=== PATIENT | male | born 1930 | race Caucasian/White ===

== ENCOUNTER 2017-02-09 15:37 | Inpatient (IN) ==
[2017-02-09] MEDS ORDERED: ASPIRIN PO STA (16:21)
[2017-02-09] MEDS ORDERED: CARDIZEM IV ONE (16:21)
[2017-02-09] MEDS ORDERED: NITROGLYCERIN SL PRN (16:21)
--- NOTE | 2017-02-09 16:25 | PROVIDER DOCUMENTATION ---
HPI-General Adult - General Chief Complaint: Palpitations Stated Complaint: a fib with rvr from PCP office Time Seen by Provider: 02/09/17 16:01 Source: patient, EMS Allergies/Adverse Reactions: Patient Allergies Allergy/AdvReac Type Severity Reaction Status Date / Time No Known Allergies Allergy Verified 02/09/17 16:43 - History of Present Illness -Gen Adult Nature of Presenting Problems: Pt is a 87 yom that presents to er with cc of afib with rvr. Pt family at bedside reports pt has had sob,malaise,fever of 101 congestion and vomiting and diarrhea x 1 day. Went to pcp sent to ER due to afib with rvr. Pt has hx of afib. No home o2. Hx of copd,dm,afib. Reports possible pneumonia in left lung. Location of Pain/Injury: reports: generalized Quality of Pain: reports: none Severity: reports: moderate Onset/Duration: reports: 24 hours ago Timing: reports: still present Similar Symptoms Previously?: No Recently seen or treated by another doctor?: Yes Review of Systems - Adult - REVIEW OF SYSTEMS - ADULT Constitutional: reports: fever, fatique. denies: chills, night sweats, weight gain, weight loss Eyes: reports: no symptoms reported Ears, Nose, Mouth & Throat: denies: ear pain, sinus problem, throat pain Cardiovascular: reports: irregular heart rate. denies: chest pain, orthopnea, poor circulation, syncope Respiratory: reports: shortness of breath. denies: cough, pleurisy, wheezing Gastrointestinal: reports: diarrhea, nausea, poor appetite, vomiting. denies: abdominal pain, hematemesis, constipation Genitourinary: reports: no symptoms reported Musculoskeletal: reports: no symptoms reported Integumentary: reports: no symptoms reported Neurological: reports: no symptoms reported Psychiatric: reports: no symptoms reported Endocrine: reports: no symptoms reported Hematologic/Lymphatic: reports: no symptoms reported Allergic/Immunologic: reports: no symptoms reported All Other Systems: Reviewed and Negative Past History - Adult - PAST MEDICAL HISTORY-ADULT Review of Records: reports: Nursing Assessment Review, Medications Reviewed Major Childhood Illnesses: reports: denies history Cardiovascular: reports: A-Fib Respiratory: reports: COPD Endocrine/Immune: reports: Diabetes Diabetes Type: Type 2 - PRIOR SURGERIES/PROCEDURES Surgical/Procedure History: reports: other (AAA) - IMMUNIZATION STATUS Childhood Immunizations: See Nurse Assessment Flu Vaccine: See Nurse Assessment - SOCIAL HISTORY Smoking: denies Physical Exam-General - PHYSICAL EXAM-ADULT Initial Vital Signs Reviewed: Yes - CONSTITUTIONAL General Appearance: alert, mild distress. 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 negative: normal color - PSYCHIATRIC Psych/Mental Status: normal mood/affect, normal thought content, normal thought process, oriented x 3 Progress - PLAN OF CARE/RESULTS Progress/Plan/Lab Results: Orders Category Date Time Status Cardiac Monitoring DIRECTED Care 02/09/17 16:21 Active Saline Loc NOW Care 02/09/17 16:21 Active cxr [CHEST-PORTABLE] [RAD] Stat Exams 02/09/17 16:21 Ordered CBC WITH ELECTRONIC DIFF [HEME] Stat Lab 02/09/17 16:21 Uncollected CK PROFILE [SP CHEM] Stat Lab 02/09/17 16:21 Uncollected COMPREHENSIVE METABOLIC PANEL [CHEM] Stat Lab 02/09/17 16:21 Uncollected MAGNESIUM [CHEM] Stat Lab 02/09/17 16:21 Uncollected PRO B-NATRIURETIC PEPTIDE Stat Lab 02/09/17 16:21 Uncollected PROTIME WITH INR [COAG] Stat Lab 02/09/17 16:21 Uncollected PTT [COAG] Stat Lab 02/09/17 16:21 Uncollected TROPONIN T Stat Lab 02/09/17 16:21 Uncollected Aspirin Med 02/09/17 16:21 Discontinued 325 mg PO STAT STA Diltiazem [Cardizem] Med 02/09/17 16:21 Discontinued 10 mg IV NOW ONE Nitroglycerin Sl [Nitroglycerin] Med 02/09/17 16:21 Active 0.4 mg SL Q5M PRN PRN EKG [EKG] Stat Ther 02/09/17 16:21 Ordered Vital Signs - 24 hr 02/09/17 02/09/17 16:05 16:42 Temperature 98.1 F Pulse Rate 170 H 80 Respiratory 26 H 22 Rate Blood Pressure 108/52 O2 Sat by Pulse 100 100 Oximetry Laboratory Tests 02/09/17 02/09/17 02/09/17 16:08 16:08 16:08 WBC 6.80 RBC 3.41 L Hgb 10.7 L Hct 33.7 L MCV 98.8 MCH 31.4 H MCHC 31.8 L RDW Std Deviation 14.7 H Plt Count 163 MPV 10.2 Immature Gran % (Auto) 0.4 Neut % (Auto) 83.4 H Lymph % (Auto) 11.8 L Dickenson % (Auto) 4.4 Eos % (Auto) 0.0 Baso % (Auto) 0.0 Immature Gran # (Auto) 0.03 Neut # (Auto) 5.67 Lymph # (Auto) 0.80 L Dickenson # (Auto) 0.30 Eos # (Auto) 0.00 Baso # (Auto) 0.00 PT 11.0 INR 1.04 PTT (Actin FS) 36.7 H Sodium 135 L Potassium 6.2 H* Chloride 104 Carbon Dioxide 13 L Anion Gap 18 BUN 57 H Creatinine 3.3 H Estimated GFR/1.73 m2 18 BUN/Creatinine Ratio 17 Glucose 155 H Calculated Osmolality 289 Calcium 8.3 L Magnesium 1.5 Total Bilirubin 0.40 AST 33 ALT 15 Alkaline Phosphatase 64 Creatine Kinase 192 Troponin T [id number] Pept Total Protein 6.9 Albumin 3.5 Globulin 3.4 Albumin/Globulin Ratio 1.0 02/09/17 02/09/17 16:08 16:08 WBC RBC Hgb Hct MCV MCH MCHC RDW Std Deviation Plt Count MPV Immature Gran % (Auto) Neut % (Auto) Lymph % (Auto) Dickenson % (Auto) Eos % (Auto) Baso % (Auto) Immature Gran # (Auto) Neut # (Auto) Lymph # (Auto) Dickenson # (Auto) Eos # (Auto) Baso # (Auto) PT INR PTT (Actin FS) Sodium Potassium Chloride Carbon Dioxide Anion Gap BUN Creatinine Estimated GFR/1.73 m2 BUN/Creatinine Ratio Glucose Calculated Osmolality Calcium Magnesium Total Bilirubin AST ALT Alkaline Phosphatase Creatine Kinase Troponin T 0.117 H [id number]-[id number] Pept 7067 H Total Protein Albumin Globulin Albumin/Globulin Ratio 1735 Hospitalist paiged - EKG 1 Time of EKG reading by physician:: 15:51 EKG Read and Signed by:: Jase Clarke EKG Interpretation (*Must complete 3 of following elements*): Abnormal (low voltage QRS) Rate: 182 Rhythm: afib with rvr Benoit: normal ST Wave: non-specific ST changes - CONSULTS/PCP/HOSPITALIST Notification #1 *Consult/PCP/Hospitalist*: Time Discussed: 17:40 Consult Disposition: Admit Departure - Departure Time of Disposition Order: 17:40 DIAGNOSIS: Atrial fibrillation with RVR, SOB (shortness of breath) Disposition: ADMITTED INPATIENT 09 Certified Medical Emergency: Emergent Condition: Stable Attestation - Scribe Verification/Attestation Scribe:: Marcelino Benitez Acting as Scribe for:: Ismael Zhong Scribe documention review:: This chart was documented by a scribe and accurately reflects the service the provider performed and the decisions made by the provider.
[2017-02-09 16:42] LABS: MANUAL DIFF NEEDED? NO
[2017-02-09 16:43] LABS: HEMATOCRIT 33.7 % (42.0-52.0); HEMOGLOBIN 10.7 g/dL (14.0-18.0); IMM GRAN# 0.03 X1000 (0.0-0.04); IMM GRAN% 0.4 % (0.0-0.5); LYMPH% 11.8 % (20.5-51.1); MCH 31.4 PG (27-31); MCHC 31.8 g/dL (33-37); MCV 98.8 FL (81-99); MONO% 4.4 % (1.7-9.3); MPV 10.2 FL (7.4-10.4); NEUT% 83.4 % (42.2-75.2); PLT 163 X1000 (130-400); RBC 3.41 XMIL (4.7-6.1)
[2017-02-09 16:50] LABS: INR 1.04; PTT 36.7 Seconds (22.0-36.0)
[2017-02-09 17:20] LABS: ALBUMIN 3.5 g/dL (3.5-5.0); CALCIUM 8.3 mg/dL (8.8-10.2); MAGNESIUM 1.5 mg/dL (1.5-2.7); TOTAL BILIRUBIN 0.4 mg/dL (0.20-1.00); TOTAL PROTEIN 6.9 g/dL (6.3-8.3)
[2017-02-09 17:22] LABS: POTASSIUM 6.2 mmol/L (3.5-5.1)
[2017-02-09] MEDS ORDERED: D50W SYRINGE IV ONE (17:41)
[2017-02-09] MEDS ORDERED: VELTASSA PO ONE (17:41)
[2017-02-09] MEDS ORDERED: SODIUM BICARBONATE 8.4% IV PUSH ONE (17:41)
[2017-02-09] MEDS ORDERED: HUMULIN R IV ONE (17:41)
[2017-02-09] MEDS ORDERED: ZOFRAN IV PRN (19:29)
[2017-02-09] MEDS ORDERED: CARDIZEM IV PRN (19:34)
[2017-02-09] MEDS ORDERED: NORCO-7.5 PO PRN (19:34)
[2017-02-09] MEDS ORDERED: HUMULIN R SUBQ ONE (19:40)
[2017-02-09] MEDS: LOPRESSOR PO SCH (19:45)
[2017-02-09] MEDS: ROCEPHIN 1 GM/NS 50 ML IV SCH (20:00)
[2017-02-09] MEDS: ALBUTEROL NEB INH PRN ×2 (20:00→23:41)
[2017-02-09] MEDS: LOVENOX SUBQ SCH (20:05)
[2017-02-09] MEDS: NS 1,000 ML IV SCH (20:20)
--- NOTE | 2017-02-09 20:40 | HISTORY AND PHYSICAL ---
PRIMARY CARE PHYSICIAN: Dr. Florentino Gaona CHIEF COMPLAINT: Nausea and vomiting. HISTORY OF PRESENT ILLNESS: The patient is an 87-year-old white male with a history of diabetes, hypertension, hyperlipidemia, with lung mass that he elected not to have further treatment even if it has inconclusive biopsy. The patient was in his usual state of health, had [place] the [place] 3 [place] ago and started having some nausea and vomiting. He has not been able to keep anything down for several days and has not been able to keep his routine home medications, including the metoprolol which he used for his high blood pressure and paroxysmal atrial fibrillation. The last time I had any of his prescription medications was 3 days ago. At the same time, the patient could not eat or drink anything until today he was able to drink some water and since arising was able to keep it down. When I saw the patient in the ER, he appeared to be in moderate distress and complaining of having shortness of breath. He also reports having fever. He denies having any sick contacts. The patient lives at home with his son who is the caregiver who gives the majority of the history as the patient seems to have some mild dementia. No report of a productive cough, but the patient has some trouble with breathing for the past 3 days, along with his nausea and nausea and vomiting. He denies having any chest pain. He reports having some palpitation when he came in, his heart rate was in the state 170s and it was atrial fibrillation with rapid ventricular response. No increase in caffeine intake. No history of thyroid disease. PAST MEDICAL HISTORY: 1. Lung mass with an inconclusive biopsy. The patient elected not to do any further treatment regarding the mass. 2. Diabetes type 2. 3. Hypertension. 4. Hyperlipidemia. 5. Dementia. 6. Paroxysmal atrial fibrillation. PAST SURGICAL HISTORY: The patient has back surgery. ALLERGY: No know drug allergies. FAMILY HISTORY: Reviewed and noncontributory. SOCIAL HISTORY: The patient quit smoking in 1986, was a heavy smoker. HOME MEDICATIONS: 1. Actos 50 mg daily. 2. Metoprolol long-acting. 50 mg p.o. daily. 3. Ramipril 10 mg twice a day. 4. Simvastatin 20 mg p.o. daily. 5. Omeprazole 20 mg p.o. daily. 6. Glucosamine 1.5 mg daily. REVIEW OF SYSTEMS: Twelve systems were reviewed and were negative except for what is mentioned in history of present illness. PHYSICAL EXAMINATION: VITAL SIGNS: Blood pressure 95/40, pulse of 103, respirations 26, temperature 98.1 degrees, saturations of 95% on 2.5 L. GENERAL APPEARANCE: Thin, white male in moderate distress due to shortness of breath. HEENT: Anicteric sclerae. Clear conjunctivae. NECK: Supple. No JVD. No bruit. CARDIOVASCULAR: S1, S2. Normal rate and rhythm. No murmur, rubs, or gallops. PULMONARY: Crackles bilaterally. GI: Soft, nontender, nondistended. Normoactive bowel sounds. MUSCULOSKELETAL: No clubbing, cyanosis, or edema. LABORATORY: White count 6.8, hemoglobin 10.7, hematocrit of 33.7, platelets 163,000. Chemistry: Sodium 135, potassium 6.2, we treated in the ER, chloride 104, bicarb 13, BUN 57, creatinine 3.3, glucose 155, troponins elevated 0.117. Calcium of 8.3. ASSESSMENT AND PLAN: This is an 87-year-old, white male, admitted to the hospital for nausea, vomiting, cough, unable to keep anything down for 3 days and he appears to be very dehydrated. 1. Dehydration, probably secondary to poor p.o. intake for the past 3 days, associated with gastroenteritis. The patient has diarrhea as well as nausea and vomiting and causing him to be very dehydrated. At the same time, the patient is taking an angiotensin-converting enzyme inhibitor which caused his potassium to go up. We will start him on intravenous fluid resuscitation. We will send him for a renal ultrasound. We will recheck his renal function in the morning. 2. Acute renal failure, per #1 above. 3. Coughing, shortness of breath, with lung mass concerning for pneumonia. We will put the patient on Rocephin and azithromycin for now. Get a blood culture. We will get the x-ray that was done in the emergency room. 4. Gastroenteritis. Seems to be resolving. We will get the abdominal x-ray. 5. Hypertension. We will hold his ramipril and we will keep the patient on metoprolol. 6. Paroxysmal atrial fibrillation. He is a poor full anticoagulation candidate. We will continue with rate control with metoprolol and add p.r.n. diltiazem for now. His last heart rates were in the 1-teens. If we need to, we can start the patient on a diltiazem drip. 7. Deep vein thrombosis prophylaxis. Put the patient on 30 of Lovenox. 8. Code status. The patient did not wish to be resuscitated by any means, but okay to do medical management.
[2017-02-09] MEDS: ZITHROMAX 500 MG/NS 250 ML IV SCH (22:30)
[2017-02-10] MEDS: ALBUTEROL NEB INH PRN ×3 (02:58→19:07)
[2017-02-10] MEDS: NS 1,000 ML IV SCH ×3 (03:57→18:55)
--- NOTE | 2017-02-10 05:39 | EKG Report ---
Test Performed on : 02/09/2017 3:51:24 PM Test Reason : Chest Pain Blood Pressure : / mmHG Vent. Rate : 182 BPM Atrial Rate : 166 BPM P-R Int : 000 ms QRS Dur : 084 ms QT Int : 250 ms P-R-T Axes : 000 034 119 degrees QTc Int : 435 ms Atrial fibrillation. with rapid ventricular response. Low voltage QRS Nonspecific ST and T wave abnormality Abnormal ECG No previous ECGs available Unconfirmed Result
[2017-02-10] MEDS: TYLENOL PO PRN ×2 (06:24→17:08)
[2017-02-10 06:50] LABS: BASO% 0.1 % (0.0-0.8); HEMATOCRIT 27.3 % (42.0-52.0); HEMOGLOBIN 8.7 g/dL (14.0-18.0); IMM GRAN# 0.07 X1000 (0.0-0.04); IMM GRAN% 0.8 % (0.0-0.5); LYMPH# 1.22 X1000 (1.2-3.4); LYMPH% 13.7 % (20.5-51.1); MANUAL DIFF NEEDED? YES; MCH 31.4 PG (27-31); MCHC 31.9 g/dL (33-37); MCV 98.6 FL (81-99); MONO% 2.2 % (1.7-9.3); MPV 9.9 FL (7.4-10.4); NEUT% 83.2 % (42.2-75.2); PLT 172 X1000 (130-400); RBC 2.77 XMIL (4.7-6.1)
[2017-02-10 07:22] LABS: CALCIUM 8.2 mg/dL (8.8-10.2); POTASSIUM 5.2 mmol/L (3.5-5.1)
[2017-02-10 07:24] LABS: BANDS 17 % (0-1); LYMPHS 24 % (21-51); MONO 2 % (1-9)
--- NOTE | 2017-02-10 08:09 | Diag Imaging Result Document ---
PROCEDURE NAME: CHEST-PORTABLE - 02/09/2017 AP PORTABLE CHEST, 02/09/2017 AT 2045 HOURS: FINDINGS: There continues to be bibasilar opacity as on 02/09/2017. There is COPD. IMPRESSION: Pulmonary edema versus pneumonia.
--- NOTE | 2017-02-10 08:11 | Diag Imaging Result Document ---
PROCEDURE NAME: GINA ABDOMEN - 02/09/2017 KUB: FINDINGS: The bowel gas pattern is nonspecific with colonic as well as small bowel gas. There are no previous studies. There is no evidence of organomegaly or mass. IMPRESSION: Nonspecific abdomen. The possibility of gastroenteritis cannot be excluded.
--- NOTE | 2017-02-10 08:25 | Diag Imaging Result Document ---
PROCEDURE NAME: US RENAL 2 (RETROPER) COMPLETE - 02/10/2017 RENAL ULTRASOUND: FINDINGS: There is no evidence of hydronephrosis or mass. The right kidney is 10.5 x 5.6 x 5.2 cm and the left is 11.7 x 5.1 x 5.9 cm. There is some cortical thinning and apparent atrophy. The bladder is not distended. IMPRESSION: No evidence of obstructive uropathy.
[2017-02-10] MEDS: LOPRESSOR PO SCH (10:06)
--- NOTE | 2017-02-10 10:12 | PROGRESS NOTE ---
DATE: 02/10/2017 SUBJECTIVE: The patient is feeling just a little better today. Still had some fever overnight, but no nausea, no vomiting, no diarrhea. OBJECTIVE: Vital Signs: Blood pressure is 95/39, pulse of 110, respirations 18, temperature 99.4 degrees, saturation of 96% on 2L nasal cannula. General Appearance: An elderly white male, weak appearance, but awake, alert, and oriented x3. HEENT: Anicteric. Clear conjunctivae. Neck: Supple. No JVD. No bruit. Cardiovascular: S1 and S2. Normal rate and rhythm. No murmur, rubs, or gallops. Pulmonary: She has crackles at the bases on both sides. Gastrointestinal: Soft, nontender, nondistended. Normoactive bowel sounds. Musculoskeletal: No clubbing, cyanosis, or edema. LABORATORY AND IMAGING STUDIES: Sodium 141, potassium 5.2, chloride 110, bicarbonate 16, BUN 63, creatinine 2.7, glucose of 123. Troponin is mildly elevated to about 0.11. Chest x-ray showed bilateral basilar pneumonia. Renal ultrasound was negative for any obstruction. Abdominal x-rays show possible gastroenteritis. ASSESSMENT AND PLAN: This is an 87-year-old white male, admitted to the hospital for fever, chills, cough, nausea, vomiting, and diarrhea, and was found to have pneumonia and gastroenteritis. 1. Pneumonia. Consistent with community-acquired pneumonia. We will continue azithromycin and Rocephin. Blood culture and sputum culture are pending. 2. Gastroenteritis, probably viral. This has resolved. We will continue IV fluid resuscitation. 3. Acute renal failure. His kidney function is improving with IV fluid. We will keep him on 125 mL/h for now. 4. History of paroxysmal atrial fibrillation. He is not a good full anticoagulation candidate. We will continue rate control with metoprolol and p.r.n. diltiazem. We will watch his blood pressure. 5. Deep vein thrombosis prophylaxis. Put the patient on Lovenox. CODE STATUS: The patient is a DNR.
[2017-02-10] MEDS: LOVENOX SUBQ SCH (18:56)
[2017-02-10] MEDS: ROCEPHIN 1 GM/NS 50 ML IV SCH (20:56)
[2017-02-10] MEDS: ZITHROMAX 500 MG/NS 250 ML IV SCH (21:47)
[2017-02-10] MEDS ORDERED: LANOXIN IV ONE (22:37)
[2017-02-10] MEDS ORDERED: NS 1,000 ML IV SCH (22:47)
[2017-02-10] MEDS: PROTONIX IV SCH (23:32)
[2017-02-11] MEDS: CARDIZEM PO SCH ×2 (02:26→08:49)
[2017-02-11] MEDS: ALBUTEROL NEB INH PRN ×2 (04:03→08:12)
[2017-02-11] MEDS ORDERED: LANOXIN IV ONE (05:00)
[2017-02-11 05:30] LABS: BASO% 0.1 % (0.0-0.8); HEMATOCRIT 26.5 % (42.0-52.0); HEMOGLOBIN 8.5 g/dL (14.0-18.0); IMM GRAN# 0.03 X1000 (0.0-0.04); IMM GRAN% 0.3 % (0.0-0.5); LYMPH# 1.68 X1000 (1.2-3.4); LYMPH% 17.6 % (20.5-51.1); MANUAL DIFF NEEDED? YES; MCH 31.5 PG (27-31); MCHC 32.1 g/dL (33-37); MCV 98.1 FL (81-99); MONO# 0.25 X1000 (0.11-0.59); MONO% 2.6 % (1.7-9.3); MPV 10.1 FL (7.4-10.4); NEUT% 79.4 % (42.2-75.2); PLT 179 X1000 (130-400)
--- NOTE | 2017-02-11 05:41 | EKG Report ---
Test Performed on : 02/10/2017 9:53:27 PM Test Reason : No Order in Power[employer]res Blood Pressure : / mmHG Vent. Rate : 143 BPM Atrial Rate : 120 BPM P-R Int : 000 ms QRS Dur : 088 ms QT Int : 310 ms P-R-T Axes : 000 052 068 degrees QTc Int : 478 ms Atrial fibrillation. with rapid ventricular response. Low voltage QRS Abnormal ECG When compared with ECG of 09-FEB-2017 15:51, (Unconfirmed) Nonspecific T wave abnormality, improved in Lateral leads Confirmed by Raven AMOR, Jeremy Walden ([id number]) on 02/11/2017 8:00:04 PM
[2017-02-11 05:50] LABS: CALCIUM 8.2 mg/dL (8.8-10.2); POTASSIUM 4.9 mmol/L (3.5-5.1)
[2017-02-11 05:55] LABS: BANDS 16 % (0-1); LYMPHS 18 % (21-51); MONO 2 % (1-9)
[2017-02-11] MEDS: LOPRESSOR PO SCH (08:50)
--- NOTE | 2017-02-11 11:04 | CONSULTATION ---
DATE OF CONSULTATION: 02/11/2017 REASON FOR CONSULTATION: Cardiology was consulted for atrial fibrillation. Patient has history of atrial fibrillation in the past. HISTORY OF PRESENT ILLNESS: This is an 87-year-old, gentleman with history of hypertension, diabetes, hyperlipidemia, lung mass and elected not to have further treatment. He had been in his usual state of health, was brought in with increasing shortness of breath, went to see Dr. Gaona. At that point, he had worsening shortness of breath and needed to be brought to the hospital with EMT. He was in atrial fibrillation with a rapid ventricular rate. He has significant dementia as well. He has been having hacking cough intermittently for the last few days. There is no hemoptysis. He denies chest pain. PAST MEDICAL HISTORY: COPD, lung mass, diabetes, hypertension, dementia, hyperlipidemia, paroxysmal atrial fibrillation, history of back surgery, chronic bronchitis, GERD. HOME MEDICATIONS: 1. Actos 50. 2. Metoprolol 50. 3. Ramipril 10 twice a day. 4. Simvastatin 20. 5. He has been started on Cardizem drip. REVIEW OF SYSTEMS: A 14-point review of systems was performed. PHYSICAL EXAMINATION: Vital Signs: Blood pressure was 109/56. Cardiovascular System: Normal jugular venous pressure. First and second heart sounds were heard. There was no S3 gallop. Respiratory System: Scattered expiratory wheeze. Abdomen: Soft, nontender. There was no guarding or rigidity. Bowel sounds were fair. Extremities: Examination of his extremities revealed trace edema. ASIC ENGINEER: Detailed central nervous system examination not performed. LABORATORY EXAMINATION: Sodium 143, potassium 4.9, BUN 57, creatinine 1.8. CK 192. Troponin 0.089, 0.114. On 02/09/2017, creatinine was 3.3 with IV fluids; with hydration, his creatinine has improved to 1.8. CODE STATUS: Patient is DNR level 1. ASSESSMENT AND PLAN: 1. Mr. Gabriel Thurman is an 87-year-old, gentleman with history of hypertension, diabetes, hyperlipidemia, dementia, atrial fibrillation in the past. He is admitted with cough and atrial fibrillation, rapid ventricular rate. He had significant shortness of breath. Chest x-ray revealed pulmonary edema versus pneumonia. As far as symptoms are concerned, he had shortness of breath with rapid ventricular rate. He has also had diarrhea. From a cardiac standpoint, we will get an echocardiogram to assess cardiac and valvular function. 2. He has been started on a Cardizem drip. We will change to oral Cardizem. 3. He has got intravenous fluids. We will discontinue the intravenous fluids given the chest x- ray suggestive of pneumonia versus pulmonary edema. However, his renal function has improved significantly. We will also get a chest x-ray in the morning. As far as Cardizem is concerned, we will change it to oral Cardizem. 4. He has been started on intravenous antibiotics. I have not made any changes. 5. As far as anticoagulation therapy is concerned, I had a detailed discussion with the patient and his son, who is the caregiver. Risks and benefits were explained in detail. They will advise us whether they would want to anticoagulate him on not. 6. His creatinine was abnormal at 3.8 when he came in, and his creatinine was abnormal as well which has improved. The abnormal troponin is secondary to acute renal insufficiency. Thank you for the consult. We will follow hospital course.
[2017-02-11] MEDS ORDERED: NS NEB INH SCH (12:00)
--- NOTE | 2017-02-11 14:39 | PROGRESS NOTE ---
DATE: 02/11/2017 SUBJECTIVE: The patient is feeling better today. Appetite still very poor. Had a fever overnight and had to be put on diltiazem drip. OBJECTIVE: Vital signs: Blood pressure 115/49, heart rate ranging from 97 to 223, temperature 97.5 degrees, satting 98% on 3 L. General appearance: Well-developed well-nourished, thin white male in mild distress. HEENT: Anicteric sclerae. Clear conjunctivae. Neck: Supple. No JVD. No bruit. Cardiovascular: Irregular rate and rhythm. Tachycardic. Pulmonary: Crackles bilaterally. GI: Soft, nontender, nondistended. Normoactive bowel sounds. Musculoskeletal: No clubbing, cyanosis, or edema. LABORATORY: White count 9.54, hemoglobin 8.5, hematocrit 26.5, platelets of 179. Chemistry: Sodium 143, potassium 4.9, chloride 114, BUN 13, creatinine 57, creatinine 1.8 and glucose 106. ASSESSMENT AND PLAN: An 87-year-old white male with lung mass admitted for gastroenteritis, dehydration and pneumonia. 1. Pneumonia. Cultures still remains no growth after 48 hours. Continue azithromycin and Rocephin for now. 2. Atrial fibrillation with rapid ventricular response. The patient is on oral metoprolol and diltiazem drips. Cardiology is following. 3. Acute renal failure is improving. Creatinine has much improved. We will continue intravenous fluid for now. 4. Dehydration, resolved. 5. Poor nutrition. We will encourage oral intake. We will add supplements. CODE STATUS: The patient is a [id number].
[2017-02-11] MEDS: XOPENEX NEB INH PRN ×3 (15:56→22:35)
[2017-02-11] MEDS: CARDIZEM CD PO SCH (18:04)
[2017-02-11] MEDS: LOVENOX SUBQ SCH ×2 (18:05→20:42)
--- NOTE | 2017-02-11 18:13 | ECHO REPORT ---
ORDER DATE: 02/11/2017 MEASUREMENTS: 1. Left ventricular end-diastolic diameter 5.1, end-systolic diameter 3.3, posterior wall 0.9, septal thickness 0.8, left atrium 3.6, aortic root 3.7. SUMMARY: 1. Difficult study due to limited acoustic window quality. 2. Aortic valve is trileaflet and sclerotic. Aortic valve opening is readily demonstrated. Peak instantaneous gradient across aortic valve is 17 mmHg with a mean gradient of 11 mmHg. There is mild aortic regurgitation. Mild mitral annular calcification is demonstrated. Tricuspid valve is without structural abnormality with trace tricuspid regurgitation. Pulmonic valve is not well demonstrated. The aortic root is normal in size. 3. Normal left ventricular dimensions suggested. Estimated left ejection fraction approximately 60%-65%. No obvious regional wall motion abnormalities are evident. Left atrium, right atrium, and right ventricle are grossly normal in size with grossly preserved right ventricular systolic force. 4. No pericardial effusion. 5. Atrial fibrillation with increased ventricular response during the study. 6. Appearance of inferior vena cava suggests normal central venous pressure. CONCLUSIONS: 1. Technically difficult study. 2. Aortic valve sclerosis without stenosis with mild aortic regurgitation. 3. Estimated left ejection fraction 60%-65%. 4. Atrial fibrillation during study with increased ventricular rate response.
[2017-02-11] MEDS: PROTONIX IV SCH (20:41)
[2017-02-11] MEDS: ROCEPHIN 1 GM/NS 50 ML IV SCH (20:41)
[2017-02-11] MEDS: ZITHROMAX 500 MG/NS 250 ML IV SCH (20:42)
[2017-02-12] MEDS: PROTONIX IV SCH ×3 (00:07→23:16)
[2017-02-12] MEDS ORDERED: LASIX IV ONE ×2 (01:27→04:13)
[2017-02-12] MEDS: XOPENEX NEB INH PRN ×5 (03:10→22:53)
[2017-02-12] MEDS ORDERED: MORPHINE IV ONE (04:15)
[2017-02-12 04:33] LABS: ALLEN TEST YES; BE -9.2 mmoll (-3.0-3.0); BLOOD TYPE ARTERIAL; DRAW SITE R RADIAL; METHB 1.9 % (0.0-1.5); O2(CT) 11.1 mL/dL (15.0-23.0); PCO2(98.6) 25 mmHg (35-45); PO2(98.6) 84 mmHg (60-100); SAMPLE BLOOD; SAO2 100.1 % (95.0-100.0); THB 8.1 g/dL (11.5-17.4); pH(98.6) 7.38 (7.35-7.45)
[2017-02-12 04:35] LABS: MODALITY CANNULA
--- NOTE | 2017-02-12 05:19 | EKG Report ---
Test Performed on : 02/12/2017 04:20:18 AM Test Reason : elevated heart rate Blood Pressure : / mmHG Vent. Rate : 130 BPM Atrial Rate : 107 BPM P-R Int : 000 ms QRS Dur : 090 ms QT Int : 304 ms P-R-T Axes : 000 049 107 degrees QTc Int : 447 ms Atrial fibrillation. with rapid ventricular response. Low voltage QRS Abnormal ECG When compared with ECG of 10-FEB-2017 21:53, No significant change was found Confirmed by Raven AMOR, Jeremy Walden ([id number]) on 02/12/2017 5:19:16 PM
[2017-02-12 05:40] LABS: BASO% 0.2 % (0.0-0.8); EOS# 0.01 X1000 (0.0-0.7); EOS% 0.1 % (0.0-10.0); HEMATOCRIT 27.4 % (42.0-52.0); HEMOGLOBIN 8.6 g/dL (14.0-18.0); IMM GRAN# 0.05 X1000 (0.0-0.04); IMM GRAN% 0.5 % (0.0-0.5); MANUAL DIFF NEEDED? YES; MCH 31.6 PG (27-31); MCHC 31.4 g/dL (33-37); MCV 100.7 FL (81-99); MONO# 0.55 X1000 (0.11-0.59); MONO% 5.5 % (1.7-9.3); MPV 10.6 FL (7.4-10.4); NEUT% 84.7 % (42.2-75.2); PLT 190 X1000 (130-400); RBC 2.72 XMIL (4.7-6.1)
[2017-02-12 05:41] LABS: LYMPHS 6 % (21-51)
[2017-02-12 05:47] LABS: CALCIUM 7.9 mg/dL (8.8-10.2)
--- NOTE | 2017-02-12 07:38 | Diag Imaging Result Document ---
PROCEDURE NAME: CHEST-PORTABLE - 02/12/2017 PORTABLE CHEST X-RAY: COMPARISON: 02/09/2017. FINDINGS: There was worsening bilateral interstitial infiltrate mostly in the mid lungs and lung bases. Stable COPD changes. Heart size remains top normal. IMPRESSION: Stable significant bilateral infiltrates most suggestive of pulmonary edema.
[2017-02-12] MEDS: DOXYCYCLINE 100 MG in NS 250 ML IV SCH ×2 (07:54→20:21)
[2017-02-12] MEDS: LOPRESSOR PO SCH (07:59)
[2017-02-12] MEDS: CARDIZEM CD PO SCH ×2 (07:59→09:47)
[2017-02-12] MEDS ORDERED: CARDIZEM PO SCH (08:30)
[2017-02-12] MEDS: LASIX IV SCH ×2 (09:52→20:21)
--- NOTE | 2017-02-12 14:09 | PROGRESS NOTE ---
DATE: 02/12/2017 SUBJECTIVE: The patient reports having a rough night last night. He had atrial fibrillation and shortness of breath overnight. No fever, no chills. No nausea, vomiting. He rested well this morning. OBJECTIVE: Vital signs: Blood pressure 113/46, pulse of 94, respirations 24, temperature 98.2 degrees, saturations of 99% on 4 L nasal cannula. General appearance: Elderly white male in mild distress. HEENT: Anicteric. Clear conjunctivae. Neck: Supple. No JVD. No bruits. Cardiovascular: Irregular rate and rhythm. No murmur, rubs, or gallops. Pulmonary: He has a crackle at the bases bilaterally up to midlung mccollum. GI: Soft, nontender, nondistended. Normoactive bowel sounds. Musculoskeletal: No clubbing, cyanosis, or edema. LABORATORY: Today's white count 10, hemoglobin 8.6, hematocrit 27.4, platelets 190,000. Chemistries. Sodium 145, potassium 4.0, chloride 111, bicarb 15, BUN 44, creatinine 1.5, glucose of 174. Chest x-ray showed stable with bilateral infiltrates mostly pulmonary edema. ASSESSMENT AND PLAN: 1. Respiratory distress, pulmonary edema and pneumonia. Will continue with antibiotics for now. Cultures still pending. The patient was started on Lasix overnight. Will keep on Lasix, will repeat x-ray in the morning. 2. Acute renal failure is improving and creatinine 1.5 this morning. 3. Metabolic acidosis probably due to infections and hypoperfusion. Will continue to monitor the patient for now. Will recheck his renal function in the morning. Consider bicarb drips. If he continues to have acidosis ABG reviewed and his acidosis able very well compensated for. 4. Atrial fibrillation. The patient is still on Lopressor. Diltiazem was changed to 180 long- acting daily. Rate is much better controlled. Will continue to monitor the patient for now. CODE STATUS: The patient is a DNR.
[2017-02-12] MEDS: ROCEPHIN 1 GM/NS 50 ML IV SCH (20:22)
[2017-02-12] MEDS: LOVENOX SUBQ SCH (20:22)
[2017-02-12] MEDS ORDERED: CARDIZEM IV ONE (23:14)
[2017-02-12] MEDS: CARDIZEM 100 MG/NS 100 ML IV SCH (23:23)
[2017-02-13] MEDS: MORPHINE IV PRN ×3 (02:47→20:15)
[2017-02-13] MEDS: XOPENEX NEB INH PRN ×6 (03:30→23:23)
[2017-02-13] MEDS: LASIX IV SCH ×2 (08:10→20:30)
[2017-02-13] MEDS: CARDIZEM CD PO SCH (08:10)
[2017-02-13] MEDS: LOPRESSOR PO SCH (08:10)
[2017-02-13] MEDS: DOXYCYCLINE 100 MG in NS 250 ML IV SCH ×2 (08:10→20:00)
[2017-02-13] MEDS: REMERON PO SCH (09:00)
--- NOTE | 2017-02-13 14:19 | PROGRESS NOTE ---
DATE: 02/13/2017 SUBJECTIVE: The patient is feeling a little better today. Still has poor appetite. No fever. No chills reported. OBJECTIVE: Vital signs: Blood pressure is 161/70, pulse of 106, respirations 21, temperature of 99.7 degrees, sat 99% on General Appearance: Thin, white male, in mild distress due to coughing. HEENT: Anicteric. Clear conjunctivae. Neck: Supple. No JVD. No bruits. Cardiovascular: Tachycardic, mild pulmonary crackles bilaterally. GI: Soft, nontender, nondistended. Normoactive bowel sounds. Musculoskeletal: No clubbing, cyanosis, or edema. LABORATORY: His sodium 142, potassium 3.7, chloride 107, bicarb 18. BUN 35, creatinine is 1.3. ASSESSMENT AND PLAN: This is an 87-year-old, white male, admitted to the hospital for community- acquired pneumonia and was found to have paroxysmal atrial fibrillation with rapid ventricular response. 1. Community-acquired pneumonia. We will continue doxycycline and Rocephin. Cultures have remained negative thus far. Chest x-ray this morning still pending. He is improving. Still having a dry cough. 2. Atrial fibrillation. The patient is on Lopressor 50 mg daily and he is on Cardizem 180 mg p.o. daily. Cardiology is following. The rate is up and down. It has been mostly in the 1 teens. 3. Moderate protein calorie deficiency. We will continue to encourage p.o. intake and we will add Ensure. CODE STATUS: The patient is a DNR.
--- NOTE | 2017-02-13 14:19 | PROGRESS NOTE ---
DATE: 02/13/2017 CHIEF COMPLAINT: Irregular heartbeat, shortness of breath. HISTORY: Mr. Thurman is an 87-year-old male patient of Dr. Florentino Gaona who presented on February 10 with weakness, shortness of breath, diarrhea, vomiting. The patient has been found in atrial fibrillation with a rapid response. He has been given IV Cardizem to control the rate. He is still having spells of significant shortness of breath. He appears to be in pulmonary edema at times. His son says that this morning he appears to be a little better. However, on two consecutive nights, he has been extremely sick. OBJECTIVE: Vital signs now: Temperature is 99.7, pulse 106, respirations 21, blood pressure 161/76. General: He is awake, debilitated, slightly tachypneic, somewhat pale. HEENT: No obvious jugular venous distention. Chest: Decreased breath sounds at the bases with some crepitance. Cardiac: Heart sounds are irregularly irregular. No gallop or murmur is noted. Abdomen: Nontender, soft. Extremities: No edema. Neurological: He is generally weak, has some tremor. Cranial nerves appear to be normal. He seems to respond appropriately. IMPRESSION: 1. Patient presented with what appears to be a possible case of pneumonia complicated with congestive heart failure probably diastolic dysfunction. 2.He has atrial fibrillation with a rapid response. 3. He does have a history of hypertension, 4. a history of a lung mass and dementia. 5. He also had acute renal failure by blood work. RECOMMENDATION: At this point in time, we will continue supportive therapy. The overall prognosis of this patient appears to be compromised because of his poor mobility , his advanced age and dementia. We will continue IV Cardizem and see how things go. cc: Mohan Cohen MD [facility]
[2017-02-13 16:49] LABS: AGAP 17; BUN 35 mg/dL (8-22); CALCIUM 8.5 mg/dL (8.8-10.2); CHLORIDE 107 mmol/L (98-107); COSMO 296; POTASSIUM 3.7 mmol/L (3.5-5.1); SODIUM 142 mmol/L (136-145); TCO2 18 mmol/L (25-35)
[2017-02-13 17:02] LABS: BASO% 0.3 % (0.0-0.8); EOS# 0.01 X1000 (0.0-0.7); EOS% 0.1 % (0.0-10.0); HEMATOCRIT 26.4 % (42.0-52.0); HEMOGLOBIN 8.6 g/dL (14.0-18.0); IMM GRAN# 0.06 X1000 (0.0-0.04); IMM GRAN% 0.8 % (0.0-0.5); LYMPH# 0.59 X1000 (1.2-3.4); LYMPH% 7.8 % (20.5-51.1); MANUAL DIFF NEEDED? NO; MCH 31.9 PG (27-31); MCHC 32.6 g/dL (33-37); MCV 97.8 FL (81-99); MONO# 0.65 X1000 (0.11-0.59); MONO% 8.6 % (1.7-9.3); MPV 9.9 FL (7.4-10.4); NEUT% 82.4 % (42.2-75.2); PLT 236 X1000 (130-400)
[2017-02-13] MEDS: SODIUM CHLORIDE 0.9% INJ SCH (20:00)
[2017-02-13] MEDS: LOVENOX SUBQ SCH (20:00)
[2017-02-13] MEDS: ROCEPHIN 1 GM/NS 50 ML IV SCH (20:00)
[2017-02-13] MEDS: PROTONIX IV SCH (20:00)
[2017-02-13] MEDS: CARDIZEM 100 MG/NS 100 ML IV SCH (20:30)
[2017-02-14] MEDS: MORPHINE IV PRN ×3 (02:38→15:06)
[2017-02-14] MEDS: XOPENEX NEB INH PRN ×6 (03:22→22:49)
[2017-02-14 05:27] LABS: MANUAL DIFF NEEDED? NO
[2017-02-14 05:37] LABS: BASO% 0.3 % (0.0-0.8); EOS# 0.02 X1000 (0.0-0.7); EOS% 0.3 % (0.0-10.0); HEMATOCRIT 27.4 % (42.0-52.0); HEMOGLOBIN 8.9 g/dL (14.0-18.0); IMM GRAN# 0.09 X1000 (0.0-0.04); IMM GRAN% 1.3 % (0.0-0.5); LYMPH# 0.79 X1000 (1.2-3.4); LYMPH% 11.4 % (20.5-51.1); MCH 31.7 PG (27-31); MCHC 32.5 g/dL (33-37); MCV 97.5 FL (81-99); MONO# 0.68 X1000 (0.11-0.59); MONO% 9.8 % (1.7-9.3); MPV 9.9 FL (7.4-10.4); NEUT% 76.9 % (42.2-75.2); PLT 293 X1000 (130-400); RBC 2.81 XMIL (4.7-6.1)
[2017-02-14 05:54] LABS: CALCIUM 8.9 mg/dL (8.8-10.2); POTASSIUM 3.8 mmol/L (3.5-5.1)
[2017-02-14] MEDS: REMERON PO SCH (08:22)
[2017-02-14] MEDS: CARDIZEM CD PO SCH (08:22)
[2017-02-14] MEDS: LOPRESSOR PO SCH (08:22)
[2017-02-14] MEDS: DOXYCYCLINE 100 MG in NS 250 ML IV SCH ×2 (08:22→20:36)
[2017-02-14] MEDS: MUCINEX PO SCH ×2 (08:22→20:37)
[2017-02-14] MEDS: LASIX IV SCH ×2 (08:23→20:37)
--- NOTE | 2017-02-14 13:05 | Diag Imaging Result Document ---
PROCEDURE NAME: CHEST-PORTABLE - 02/14/2017 PORTABLE CHEST: Compared with 02/12/2017. FINDINGS: Heart size is normal. There are COPD changes. There are bilateral lower lung infiltrates which appear stable. There is no substantial pleural effusion, or pneumothorax identified. IMPRESSION: COPD. Stable bilateral lower lung infiltrates.
--- NOTE | 2017-02-14 14:05 | PROGRESS NOTE ---
DATE: 02/14/2017 SUBJECTIVE: The patient is feeling just a little better today, still has a lot of crackles in the upper airway. OBJECTIVE: Vital signs: Blood pressure is 123/52, pulse 95, respirations 18, temperature 99, O2 saturation 89% on 2 L, the high is about 92%. General appearance: A thin cachectic white male in mild distress. HEENT: Anicteric sclerae. Clear conjunctivae. Neck supple. No JVD. No bruit. Cardiovascular: S1 and S2. Normal rate and rhythm. No murmurs, rubs or gallops. Pulmonary: Coarse crackles bilaterally. GI: Soft, nontender and nondistended. Normoactive bowel sounds. Musculoskeletal: No cyanosis, clubbing or edema. DIAGNOSTIC DATA: White count is 6.93, hemoglobin 8.9, hematocrit 27.4, platelets 293. Chemistry shows sodium 144, potassium 3.8, chloride 107, bicarb 22, BUN is 44, creatinine 1.4, glucose 203. His chest x-ray today still shows haziness in both lower lobes. ASSESSMENT AND PLAN: This is an 87 year old with lung cancer, admitted to the hospital for pneumonia and acute renal failure. 1. Pneumonia. We will continue azithromycin and Rocephin for now. He is improving slowly, still has coarse crackles. Chest x-ray shows no significant improvement. Still has some pulmonary edema. We will continue Lasix. We will watch his renal function. 2. Atrial fibrillation with rapid ventricular response. The patient is on diltiazem which we will increase his diltiazem to 240 mg p.o. daily. The patient is on Lopressor 50 mg daily. 3. DVT prophylaxis. The patient is on Lovenox. Overall prognosis is poor with his lung cancer and now has superimposed pneumonia. The patient is a DNR. I talked to the family that he may not make it out of the hospital. We will repeat x-ray in the morning. We will continue nebulizer treatment and will continue supportive care.
[2017-02-14] MEDS: LOVENOX SUBQ SCH (20:37)
[2017-02-14] MEDS: ROCEPHIN 1 GM/NS 50 ML IV SCH (20:37)
[2017-02-14] MEDS: CARDIZEM 100 MG/NS 100 ML IV SCH (20:37)
[2017-02-14] MEDS: PROTONIX IV SCH (20:37)
[2017-02-14] MEDS: SODIUM CHLORIDE 0.9% INJ SCH (20:37)
[2017-02-15] MEDS: XOPENEX NEB INH PRN ×3 (03:02→11:02)
[2017-02-15 08:57] LABS: MANUAL DIFF NEEDED? NO
[2017-02-15 09:04] LABS: BASO% 0.3 % (0.0-0.8); EOS# 0.04 X1000 (0.0-0.7); EOS% 0.6 % (0.0-10.0); HEMOGLOBIN 8.4 g/dL (14.0-18.0); IMM GRAN% 1.5 % (0.0-0.5); LYMPH# 0.72 X1000 (1.2-3.4); LYMPH% 10.7 % (20.5-51.1); MCH 31.6 PG (27-31); MCHC 32.3 g/dL (33-37); MCV 97.7 FL (81-99); MONO# 0.47 X1000 (0.11-0.59); MPV 9.7 FL (7.4-10.4); NEUT% 79.9 % (42.2-75.2); PLT 359 X1000 (130-400); RBC 2.66 XMIL (4.7-6.1)
[2017-02-15] MEDS: CARDIZEM CD PO SCH (09:16)
[2017-02-15] MEDS: MUCINEX PO SCH ×2 (09:17→20:13)
[2017-02-15] MEDS: REMERON PO SCH (09:17)
[2017-02-15] MEDS: LOPRESSOR PO SCH ×2 (09:17→20:13)
[2017-02-15] MEDS: DOXYCYCLINE 100 MG in NS 250 ML IV SCH ×2 (09:18→20:13)
[2017-02-15] MEDS: LASIX IV SCH (09:18)
[2017-02-15 09:25] LABS: CALCIUM 8.7 mg/dL (8.8-10.2); POTASSIUM 3.8 mmol/L (3.5-5.1)
--- NOTE | 2017-02-15 09:51 | Diag Imaging Result Document ---
PROCEDURE NAME: CT THORAX W/O CONTRAST - 02/15/2017 CT CHEST WITHOUT CONTRAST. DOSE REDUCTION PROTOCOL. COMPARISON: No comparison films. FINDINGS: There are small bilateral pleural effusions. The one on the left measures 2.0 cm posteriorly and inferiorly in the midline whereas the one on the right measures 1.3 cm. There is a small pericardial effusion measuring approximately 6 mm. The heart is not enlarged. Prominent atherosclerosis. There are mildly prominent mediastinal lymph nodes. The patient has severe emphysema. I believe there is scarring anteriorly in the left upper lobe. There are diffuse increased interstitial markings primarily in the lower lobes which may simple be fibrosis. No consolidation. IMPRESSION: 1. Severe emphysema. 2. Increased interstitial markings primarily in the lower lobes believed to be fibrosis. 3. Prominent atherosclerosis. 4. Mildly enlarged mediastinal lymph nodes. 5. Small pleural effusions as well as a small pericardial effusion.
[2017-02-15] MEDS: MORPHINE IV PRN ×2 (11:37→21:35)
[2017-02-15] MEDS ORDERED: NS NEB INH SCH (13:45)
[2017-02-15] MEDS: CARDIZEM 100 MG/NS 100 ML IV SCH (14:05)
--- NOTE | 2017-02-15 14:17 | PROGRESS NOTE ---
DATE: 02/15/2017 SUBJECTIVE: The patient is resting comfortably in bed. He has no complaints at this time. He states that his shortness of breath is about the same. OBJECTIVE: Vital Signs: Temperature 98.5 degrees, blood pressure 134/58, heart rate 137, respirations 18, O2 saturations 93% on 5 L nasal cannula. General: This is a chronically ill- appearing, elderly male, lying in bed, in no acute distress. Head: Normocephalic, atraumatic. Heart: S1, S2. Normal. Lungs: Expiratory crackles present. No rhonchi. No rales. Abdomen: Positive bowel sounds. Soft, nontender, nondistended. Extremities: There is +1 edema. No cyanosis. No calf tenderness. Neurologic: The patient is alert and oriented x3. LABS: White blood cell count 6.7, hemoglobin 8.4, hematocrit 26, platelets 358,000. Sodium 143, potassium 3.8, chloride 107, CO2 21, BUN 51, creatinine 1.4, glucose 224, calcium 8.7. ASSESSMENT AND PLAN: 1. Acute on chronic hypoxemic respiratory failure, multifactorial. The patient does have pulmonary fibrosis with chronic obstructive pulmonary disease. Continue with bronchodilator therapy plus antibiotics. 2. Acute diastolic congestive heart failure exacerbation. Continue IV Lasix. Cardiology is following. 3. Atrial fibrillation with rapid ventricular response. The patient is currently on a Cardizem drip. Further management as per the soil conservation aide. 4. Dementia. Aware. 5. Lung mass. Aware. The patient opted for no further workup or intervention. 6. Diabetes mellitus type 2. Continue on sliding scale insulin. 7. Deep vein thrombosis prophylaxis. Continue on Lovenox. 8. Acute kidney injury on chronic kidney disease. Slowly improving. cc: Ivette Mcfarland MD
[2017-02-15] MEDS: XOPENEX NEB INH SCH ×2 (15:36→21:00)
[2017-02-15] MEDS: PROTONIX IV SCH (20:13)
[2017-02-15] MEDS: LOVENOX SUBQ SCH (20:13)
[2017-02-15] MEDS: ROCEPHIN 1 GM/NS 50 ML IV SCH (20:14)
[2017-02-16] MEDS: CARDIZEM 100 MG/NS 100 ML IV SCH ×3 (00:32→20:18)
[2017-02-16] MEDS: XOPENEX NEB INH SCH ×4 (03:49→21:05)
[2017-02-16 05:08] LABS: HEMATOCRIT 24.7 % (42.0-52.0); HEMOGLOBIN 7.7 g/dL (14.0-18.0); MCH 31.4 PG (27-31); MCHC 31.2 g/dL (33-37); MCV 100.8 FL (81-99); MPV 9.6 FL (7.4-10.4); RBC 2.45 XMIL (4.7-6.1)
[2017-02-16 05:34] LABS: CALCIUM 8.5 mg/dL (8.8-10.2); POTASSIUM 3.8 mmol/L (3.5-5.1)
[2017-02-16] MEDS: LEVEMIR SUBQ SCH ×3 (06:46→20:38)
[2017-02-16] MEDS: DOXYCYCLINE 100 MG in NS 250 ML IV SCH ×2 (07:53→20:37)
[2017-02-16] MEDS: LOPRESSOR PO SCH ×2 (07:59→20:37)
[2017-02-16] MEDS: CARDIZEM CD PO SCH (07:59)
[2017-02-16] MEDS: REMERON PO SCH (07:59)
[2017-02-16] MEDS: MUCINEX PO SCH ×2 (07:59→20:37)
[2017-02-16] MEDS: MORPHINE IV PRN ×3 (08:51→20:37)
--- NOTE | 2017-02-16 13:09 | PROGRESS NOTE ---
DATE: 02/16/2017 SUBJECTIVE: The patient states that he does not feel good today. He is more short of breath and he is now on 6 L nasal cannula. OBJECTIVE: Vital Signs: Temperature 98.3 degrees, blood pressure 135/52, heart rate 75, respirations 18, O2 saturations 95% on 6 L nasal cannula. General: This is a chronically ill- appearing, elderly male, lying in bed, in no acute distress. Head: Normocephalic atraumatic. Heart: S1, S2. Normal. Regular rate and rhythm. Lungs: Coarse breath sounds bilaterally. Abdomen: Positive bowel sounds. Soft, nontender, nondistended. Extremities: +1 edema. No cyanosis. No calf tenderness. Neurologic: The patient is awake and alert. LABS: White blood cell count 7, hemoglobin 7.7, hematocrit 24, platelets 348,000. Sodium 142, potassium 3.8, chloride 106, CO2 20, BUN 61, creatinine 1.5. Glucose 154. ASSESSMENT AND PLAN: 1. Acute on chronic hypoxemic respiratory failure. Multifactorial. The patient had a CT of the chest done yesterday that revealed severe emphysema with pulmonary fibrosis. Overall this appears to be a poor prognosis for the patient. He is not really responding to the antibiotics and bronchodilator therapy. We will consult Pulmonary for further recommendations. 2. Atrial fibrillation with rapid ventricular response. The patient remains on a Cardizem drip. 3. Uncontrolled insulin-dependent diabetes mellitus type 2. Improved. Continue on Levemir 15 units subcutaneous twice a day. 4. Severe protein calorie malnutrition. The patient has no appetite and is not be eating well. Patient is receiving Glucerna with every meal. The booky is also following. 5. Lung mass. Aware. 6. Dementia. Aware. 7. Acute on chronic diastolic congestive heart failure. The patient responded well to diuretic therapy the last several days. Will continue to monitor this closely. Cardiology is following. 8. Constipation. We will order an abdominal x-ray. If that is clear we will go ahead and start the patient on scheduled laxatives. 9. Disposition. The patient has a very poor prognosis. This was discussed with the patient's son today. The patient is currently a DNR level 1. We will see how the patient does within the next 24-48 hours and then make further decisions at that time. cc: Ivette Mcfarland MD
--- NOTE | 2017-02-16 14:21 | Diag Imaging Result Document ---
PROCEDURE NAME: FLAT/UPRIGHT ABD/1 VIEW CHEST - 02/16/2017 PLAIN RADIOGRAPH OF THE CHEST AND ABDOMEN 3 VIEWS: COMPARISON: 02/14/2017. FINDINGS: There are nonspecific bowel gas and stool patterns. Most of the bowel gas appears to be colonic. There may be trace of small bowel gas. There is nothing that would necessarily indicate obstruction. There is no evidence of large-volume free abdominal gas. There is no discrete organomegaly. COPD changes and bibasilar infiltrates are stable. There are no new consolidations identified. Cardiac silhouette is stable. IMPRESSION: 1. Nonspecific abdomen. 2. Stable chest with infiltrates at both lower lung zones.
[2017-02-16] MEDS: PROTONIX IV SCH (20:37)
[2017-02-16] MEDS: LOVENOX SUBQ SCH (20:37)
[2017-02-16] MEDS: ROCEPHIN 1 GM/NS 50 ML IV SCH (20:37)
[2017-02-17] MEDS: MORPHINE IV PRN (00:02)
[2017-02-17 05:00] LABS: ALLEN TEST YES; BE -1.4 mmoll (-3.0-3.0); BLOOD TYPE ARTERIAL; DRAW SITE R RADIAL; METHB 1.5 % (0.0-1.5); O2(CT) 11.1 mL/dL (15.0-23.0); PCO2(98.6) 31 mmHg (35-45); PO2(98.6) 73 mmHg (60-100); SAMPLE BLOOD; SAO2 97.5 % (95.0-100.0); THB 8.2 g/dL (11.5-17.4); pH(98.6) 7.46 (7.35-7.45)
[2017-02-17 05:01] LABS: MODALITY CANNULA
[2017-02-17 05:42] LABS: MANUAL DIFF NEEDED? NO
[2017-02-17 05:49] LABS: BASO% 0.3 % (0.0-0.8); EOS# 0.18 X1000 (0.0-0.7); EOS% 2.3 % (0.0-10.0); HEMATOCRIT 24.1 % (42.0-52.0); HEMOGLOBIN 7.7 g/dL (14.0-18.0); IMM GRAN# 0.04 X1000 (0.0-0.04); IMM GRAN% 0.5 % (0.0-0.5); LYMPH# 0.96 X1000 (1.2-3.4); LYMPH% 12.5 % (20.5-51.1); MCH 31.6 PG (27-31); MCV 98.8 FL (81-99); MONO# 0.42 X1000 (0.11-0.59); MONO% 5.5 % (1.7-9.3); MPV 9.8 FL (7.4-10.4); NEUT% 78.9 % (42.2-75.2); PLT 415 X1000 (130-400); RBC 2.44 XMIL (4.7-6.1)
[2017-02-17] MEDS: CARDIZEM 100 MG/NS 100 ML IV SCH (06:10)
[2017-02-17 06:31] LABS: CALCIUM 8.6 mg/dL (8.8-10.2); POTASSIUM 3.5 mmol/L (3.5-5.1)
--- NOTE | 2017-02-17 07:52 | Diag Imaging Result Document ---
PROCEDURE NAME: CHEST-PORTABLE - 02/17/2017 SINGLE FRONTAL RADIOGRAPH OF THE CHEST: COMPARISON: 02/16/2017. FINDINGS: Infiltrates at the mid and lower lung zones bilaterally are unchanged. No new consolidations are identified. Cardiac silhouette is stable. IMPRESSION: Stable chest.
[2017-02-17] MEDS: MUCINEX PO SCH ×2 (09:27→20:45)
[2017-02-17] MEDS: CARDIZEM CD PO SCH (09:27)
[2017-02-17] MEDS: LOPRESSOR PO SCH ×2 (09:29→20:45)
[2017-02-17] MEDS: LEVEMIR SUBQ SCH ×2 (09:30→20:45)
--- NOTE | 2017-02-17 09:53 | CONSULTATION ---
DATE OF CONSULTATION: 02/17/2017 REFERRING PHYSICIAN: Ivette Mcfarland MD CHIEF COMPLAINT: Nausea and vomiting. HISTORY OF PRESENT ILLNESS: This is an 87-year-old male with a past medical history of diabetes, hypertension, hyperlipidemia, with a history of lung mass, who presented to the hospital with complaints of nausea and vomiting. He is just past a vacation from the beach. Diagnostics in the hospital have revealed severe emphysema with pulmonary fibrosis, in which the patient is poorly responding to treatment. He continues to be short of breath, but he denies any pain or discomfort at this time. REVIEW OF SYSTEMS: A 10-point review of systems was conducted and was as noted in the HPI, otherwise noncontributory. PAST MEDICAL HISTORY: As mentioned in HPI, otherwise noncontributory. PAST SURGICAL HISTORY: Back surgery. ALLERGIES: No known drug allergies. FAMILY HISTORY: Noncontributory. SOCIAL HISTORY: The patient was formally a heavy smoker, but stopped many years ago. ACTIVE MEDICATIONS: Tylenol, Vidalia, Rocephin, Cardizem, doxycycline, Lovenox, Mucinex, Levemir, Xopenex, Lopressor, Remeron, morphine, nitroglycerin, Zofran, Protonix. PHYSICAL EXAMINATION: Vital Signs: Temperature 98.2, heart rate 83, respiratory rate 20, blood pressure 156/48, oxygen saturation 96%. General: A chronically ill-appearing male, in no acute distress. HEENT: Normocephalic and atraumatic. PERRL. Cardiovascular: Regular rate and rhythm. Chest: Reduced entry with coarse breath sounds bilaterally. Abdomen: Soft, nontender, nondistended. Bowel sounds present in all quadrants. Extremities: There is +1 pedal edema. Neurologic: Alert and oriented. LABORATORIES AND INVESTIGATIONS: WBC 7.67, RBC is 2.44, hemoglobin 7.7, hematocrit 24.1, platelet count 415,000. Sodium 145, potassium 3.5, chloride 110, anion gap 15, BUN 57, creatinine 1.3, glucose 88. Blood gas reveals a pH of 7.46, pCO2 of 31, PO2 of 73, HCO3 of 23.8 , saturated oxygen of 98%. Chest x-ray performed on 02/17/2017 shows a stable chest. ASSESSMENT AND PLAN: This is an 87-year-old male with a past medical history as mentioned in the HPI who presented to the hospital with complaints of nausea and vomiting. He has continued to decline from a respiratory standpoint with acute on chronic hypoxic respiratory failure, COPD and pulmonary fibrosis. CT chest reviewed. Imaging studies reveal emphysema and pulmonary fibrosis. Overall, a poor prognosis. He also has atrial fibrillation with rapid ventricular response, currently receiving Cardizem. He also has uncontrolled diabetes, in which he is on Levemir currently. Aware of lung mass, does not want treatment. Cardiology is following secondary to his acute on chronic diastolic congestive heart failure. Continue intravenous antibiotics, inhaled bronchodilators, deep vein thrombosis and gastrointestinal prophylaxis. Further recommendations pending diagnostic studies. Thank for the courtesy of this consultation. cc: Scott Menard MD MTDD
[2017-02-17] MEDS: XOPENEX NEB INH SCH ×4 (10:47→22:23)
[2017-02-17] MEDS ORDERED: LASIX IV ONE (12:24)
--- NOTE | 2017-02-17 12:51 | PROGRESS NOTE ---
DATE: 02/17/2017 SUBJECTIVE: The patient states that he does not feel good today. He does have a productive cough. He remains on 6L of O2. OBJECTIVE: Vital Signs: Temperature 98.4 degrees, blood pressure 139/59, heart rate 91, respirations 18, O2 saturation 96% on 6L nasal cannula. General: This is a chronically ill- appearing, elderly male, lying in bed. Head: Normocephalic, atraumatic. Heart: S1 and S2 normal. Lungs: Coarse breath sounds. Abdomen: Positive bowel sounds. Soft, nontender, nondistended. Extremities: Edema 2+. Neurologic: The patient is alert and able to answer questions appropriately. LABORATORIES: White blood cell count 7.6, hemoglobin 7.7, hematocrit 24, platelets 415,000. Sodium 145, potassium 3.5, chloride 110, CO2 of 20, BUN 57, creatinine 1.3, glucose 88. ASSESSMENT AND PLAN: 1. Acute on chronic hypoxemic respiratory failure, multifactorial. Will continue on the current regimen. Pulmonary is following. 2. Atrial fibrillation. The patient is rate controlled. Further recommendations as per the waste disposal attendant. 3. Diabetes mellitus, type 2. Continue on Levemir 15 units subcutaneous twice a day plus sliding scale insulin. 4. Severe protein calorie malnutrition. Continue with Glucerna with each meal. 5. Acute on chronic diastolic congestive heart failure exacerbation. The patient does have some lower extremity edema. Will give a dose of Lasix today. 6. Constipation. Continue on scheduled laxatives. 7. Disposition. Will consult Palliative Care for assistance with goals of care. The patient is currently a DNR level 1. cc: Ivette Mcfarland MD
[2017-02-17] MEDS: DOXYCYCLINE 100 MG in NS 250 ML IV SCH ×2 (13:58→16:04)
[2017-02-17] MEDS ORDERED: NS 250 ML ONE (14:09)
[2017-02-17] MEDS: MIRALAX PO SCH ×2 (15:12→20:45)
--- NOTE | 2017-02-17 15:47 | Diag Imaging Result Document ---
PROCEDURE NAME: CHEST-PORTABLE - 02/17/2017 PORTABLE CHEST: COMPARISON: Compared to a study performed earlier in the day. FINDINGS: Interval placement of a right-sided PICC line. Tip overlies the distal superior vena cava. No other interval changes with persistent mid and lower lung infiltrates. IMPRESSION: Right-sided PICC line in good position.
[2017-02-17 16:29] LABS: PROTIME 11.1 Seconds (9.2-11.7)
[2017-02-17 16:30] LABS: INR 1.05
[2017-02-17] MEDS: LOVENOX SUBQ SCH (20:41)
[2017-02-17] MEDS: ROCEPHIN 1 GM/NS 50 ML IV SCH (20:41)
[2017-02-17] MEDS: PROTONIX IV SCH (20:45)
[2017-02-17] MEDS: SODIUM CHLORIDE 0.9% INJ SCH (20:45)
[2017-02-17] MEDS ORDERED: DULCOLAX PR SCH (21:00)
[2017-02-17] MEDS ORDERED: REMERON PO SCH (21:00)
[2017-02-18] MEDS: DOXYCYCLINE 100 MG in NS 250 ML IV SCH (03:20)
[2017-02-18] MEDS: MORPHINE IV PRN (03:30)
[2017-02-18] MEDS: XOPENEX NEB INH SCH (03:57)
[2017-02-18 05:16] LABS: MANUAL DIFF NEEDED? NO
[2017-02-18 06:42] LABS: AGAP 17; BUN 42 mg/dL (8-22); CALCIUM 8.4 mg/dL (8.8-10.2); CHLORIDE 110 mmol/L (98-107); COSMO 306; POTASSIUM 3.6 mmol/L (3.5-5.1); SODIUM 148 mmol/L (136-145); TCO2 21 mmol/L (25-35)
[2017-02-18 06:43] LABS: BASO% 0.2 % (0.0-0.8); EOS# 0.12 X1000 (0.0-0.7); EOS% 1.5 % (0.0-10.0); HEMATOCRIT 26.3 % (42.0-52.0); HEMOGLOBIN 8.2 g/dL (14.0-18.0); IMM GRAN# 0.06 X1000 (0.0-0.04); IMM GRAN% 0.7 % (0.0-0.5); LYMPH# 0.73 X1000 (1.2-3.4); MCH 30.9 PG (27-31); MCHC 31.2 g/dL (33-37); MCV 99.2 FL (81-99); MONO# 0.53 X1000 (0.11-0.59); MONO% 6.5 % (1.7-9.3); MPV 9.6 FL (7.4-10.4); NEUT% 82.1 % (42.2-75.2); PLT 453 X1000 (130-400); RBC 2.65 XMIL (4.7-6.1)
[2017-02-18] MEDS ORDERED: ATIVAN IV PRN (09:39)
[2017-02-19 04:10] VITALS: BP 147/63
--- NOTE | 2017-02-19 05:44 | DISCHARGE SUMMARY ---
ADMISSION DATE: 02/09/2017 DISCHARGE DATE: 02/19/2017 CONSULTATIONS: 1. Dr. Salamanca, Cardiology. 2. Dr. Menard, Pulmonology. PROCEDURES: 1. Abdominal x-ray nonspecific. 2. Renal ultrasound showed no evidence of obstructive uropathy. 3. Echocardiogram technically difficult study. Aortic valve sclerosis without stenosis and mild aortic regurgitation with estimated EF of 60-65%. Atrial fibrillation during the study which increased the ventricular rate response. 4. Chest CT showed severe emphysema and increased interstitial markings, primarily in the lower lobes believed to be fibrosis. Prominent atherosclerosis. Mildly enlarged mediastinal lymph nodes. Small pleural effusion as well as small pericardial effusion. 5. Abdominal x-ray nonspecific. DISCHARGE DIAGNOSES: 1. Acute on chronic hypoxemic respiratory failure multifactorial being followed up pulmonology. Patient is being discharged home with comfort care. 2. Atrial fibrillation, rate controlled followed by Cardiology. 3. Diabetes mellitus type 2. 4. Severe protein calorie malnutrition. Patient is to continue with Glucerna each meal. 5. Acute on chronic systolic congestive heart failure exacerbation followed by Cardiology. Patient going home with comfort measures. 6. Constipation. Continue with bowel regimen. 7. DNR level 1 with palliative care consult. Patient will be going home with comfort measures in the morning. HOSPITAL COURSE: Briefly, Mr. Thurman is an 87-year-old male with a history of diabetes, hypertension and hyperlipidemia with lung mass, but he elected not to have further treatment even if it has an inconclusive biopsy. The patient was in his usual state of health. He had been back home from the beach for 3 days. He started having some nausea and vomiting. He had not been able to keep anything down for several days, and had not been able to keep his routine home medications including his metoprolol which he used for high blood pressure as well as his proximal atrial fibrillation. The patient also had some complaints of shortness of breath and reported fever. The patient does live at home with his son who is his caregiver. He did give the majority of the history. The patient did seem to have some mild dementia. They denied any chest pain or productive cough, but did report trouble with breathing for the past 3 days along with his nausea and vomiting. Patient did report palpitations when he came into the ED. His heart rate was in the 170's and atrial fibrillation with RVR. The patient was admitted for dehydration secondary to poor p.o. intake as well as acute renal failure, atrial fibrillation with RVR as well as gastroenteritis that seem to be a resolving on admission. The patient was started on IV hydration and monitored his renal function closely. There was some concern for pneumonia. He was started on IV antibiotics as well as blood cultures. Patient was started back on his metoprolol and added p.r.n. Cardizem pushes. Cardiology was also consulted because he had to be initiated on Cardizem drip. He was eventually changed to p.o. Cardizem after his rate was controlled. Cardiology also discussed with him anticoagulation therapy in great detail. Patient's renal function improved with IV hydration. Patient's dehydration resolved. The patient did show signs of some diastolic heart failure in the form of respiratory distress, pulmonary edema and pneumonia. He was started on Lasix. It was discussed with the family that his overall prognosis was poor with his lung cancer and now his superimposed pneumonia. Again, the patient was a DNR level 1 here. Family has decided to take the patient home on comfort measures. [employer] was consulted. The patient does remain on 6 L of O2. His atrial fibrillation rate remains controlled. The patient will be discharged home on 02/19/2017 with comfort care. DISCHARGE DIET: Diabetic. DISCHARGE MEDICATIONS FOR COMFORT CARE: 1. 20 mg 1 mL give 2.5 mg 0.125 mL oral q.1 hour p.r.n. pain. 2. Scopolamine 1.5 mg patch q.72h hours. 3. Ativan 1 mg p.o. q.4 hours p.r.n. anxiety. FOLLOW UP: Patient is being discharged home on 02/19/2017 with comfort care. Patient to return to the ED for any worsening of symptoms. TIME SPENT: Discharge time 30 minutes. Dictated by JEMAL Fletcher for Ivette Mcfarland MD cc: MD Florentino Rockwell MD
== END 2017-02-19 07:30 | disposition hospice, home (50) ==
LOC: EDUNIT# → EDBD → ED 15:37 → SUATTDRO 16:29 → 3S 16:29 → UNDOADMIN 02-10 00:22
PROVIDERS: ATTEND Internal Medicine